=== PATIENT | male | born 1985 | race African-American/Black ===

== ENCOUNTER → 2016-11-27 | Outpatient (CLI) | payer BC ==
[~2016-11-27] MED LIST: CLR10 PO
--- NOTE | 2016-11-27 10:05 | DIAGNOSTIC IMAGING REPORT ---
CERVICAL SPINE 5 VIEWS CLINICAL HISTORY: Cervicalgia and right upper extremity radiculopathy. FINDINGS: AP, lateral, bilateral oblique, and odontoid views of the cervical spine are obtained. No prior studies are available for comparison at the time of dictation. The skeletal structures are well mineralized. There is no radiographic evidence of fracture or subluxation. The odontoid process and lateral masses appear intact on the open mouth view. The spinolaminar line is preserved. Vertebral body height and alignment are maintained. There is mild straightening of cervical lordosis. Small anterior osteophytes are seen from C4-C6. The spinous processes appear intact. The intervertebral disc spaces are normal. There is no evidence of neuroforaminal stenosis on the oblique views. The prevertebral soft tissues are within normal limits. Visualized apical lung parenchyma appears clear. IMPRESSION: No significant abnormality. Electronically signed by: Kumar Dewitt M.D. 11/27/2016 10:04 AM Dictated Date/Time: 11/27/2016 10:03 AM
== END | disposition home or self-care (01) ==
LOC: C.RDSM 13:11
PROVIDERS: ATTEND Internal Medicine
DX: M54.12 Radiculopathy, cervical region (principal)